=== PATIENT | male | born 1995 | race Caucasian/White ===

== ENCOUNTER 2023-11-12 04:51 | Observation (INO) ==
--- NOTE | 2023-11-12 05:16 | Emergency Department Note ---
History of Present Illness General Chief complaint: Shortness of Breath/Dyspnea Stated complaint: CHEST AND SINUS CONGESTION Time Seen by Provider: 11/12/23 05:05 History of Present Illness This 28-year-old male presents to the ER complaining of cough, congestion, sinus pain and congestion for the past week who last night had some chest pain and shortness of breath that is now resolved. Patient does suffer from anxiety. Patient states earlier in the week he had a day of cold symptoms but nothing since. Patient denies current abdominal pain, exertional chest pain, productive cough, sore throat, headache, neck stiffness. He speaking in full sentences. He states he is healthy with no active medical problems. No family history of heart disease. Home Medications Medication Instructions Recorded Confirmed Type No Known Home Medications 11/12/23 11/12/23 History Allergies Allergy/AdvReac Type Severity Reaction Status Date / Time No Known Allergies Allergy Unverified 11/12/23 06:10 Past Med/Surg History Social History Smoking Status: Never smoker Second Hand Exposure: No; Do You Dip or Chew Tobacco: No; Tobacco Cessation Education Requested by Patient: No Hx Alcohol Use: Yes Alcohol type: beer Hx Substance Use: No Preferred Language: Tamazight Communication Ability: Effective File System Installer Required: No Beliefs That Will Affect Care: None Current Living Situation: Parent Current Living Situation Comment: at home with parents Other Information That Helps Us Care for You: No Feels Safe at Home: Yes Safety Concerns: Feels Safe At This Time Assistive Devices: Glasses Review of Systems A total of 10 systems reviewed and were otherwise negative Physical Exam Vital Signs Vital Signs - 24 hr 11/12/23 05:01 11/12/23 05:23 11/12/23 05:47 Temperature 36.7 C Temperature Source Oral Pulse Rate 77 74 Pulse Rate [Apical] Pulse Rhythm [Apical] Respiratory Rate Respiratory Effort / Characteristics Non-Labored Spontaneous Respiratory Depth Normal Respiratory Pattern Regular Blood Pressure 125/77 Blood Pressure [Left Arm] Blood Pressure Mean 93 Blood Pressure Mean [Left Arm] Blood Pressure Position [Left Arm] Pulse Oximetry 97 Oxygen Delivery Method Room Air Oxygen Flow Rate Sepsis Recent Fever Within 48 Hours No Sepsis New/Unexplained Change in Mental Status No Sepsis Action Taken by Nursing No Action Required 11/12/23 05:47 11/12/23 05:49 11/12/23 06:05 Temperature Temperature Source Pulse Rate Pulse Rate [Apical] 79 Pulse Rhythm [Apical] Regular Respiratory Rate 18 Respiratory Effort / Characteristics Non-Labored Spontaneous Respiratory Depth Normal Respiratory Pattern Regular Blood Pressure Blood Pressure [Left Arm] 121/64 Blood Pressure Mean Blood Pressure Mean [Left Arm] 83 Blood Pressure Position [Left Arm] Semi-fowlers Pulse Oximetry 100 100 98 Oxygen Delivery Method Room Air Room Air Room Air Oxygen Flow Rate 0 Sepsis Recent Fever Within 48 Hours Sepsis New/Unexplained Change in Mental Status Sepsis Action Taken by Nursing VITALS: Vitals are noted on the nurse's note and reviewed by myself. Vital signs stable. GENERAL: Pleasant male speaking in full sentences, in no acute distress, nondiaphoretic, well-developed well-nourished. SKIN: The skin was without rashes, erythema, edema, or bruising. There is no tenting of the skin. Capillary reflex less than 2 seconds. HEAD: Normocephalic atraumatic. EARS: External auditory canals clear EYES: Pupils equal round and reactive to light and accommodation. Conjunctivae without injection, sclerae without icterus. Extraocular movements intact. NOSE: Patent, no discharge. MOUTH: Mucous membranes moist. Pharynx without erythema or exudate. Uvula midline. Airway patent. Tongue does not deviate. NECK: Supple without nuchal rigidity. No lymphadenopathy. No thyromegaly. Cervical spine is nontender. No JVD. HEART: Regular rate and rhythm LUNGS: Mild diffuse and expiratory wheezes, No retractions or accessory muscle use. ABDOMEN: Positive bowel sounds x 4. Normal tympanic percussion. Soft, nontender, without masses or organomegaly. Claudio sign negative. No guarding or rebound tenderness. No CVA tenderness MUSCULOSKELETAL: No muscle atrophy, erythema, or edema noted. NEURO: Patient was alert and oriented to person place and time. Normal sensation to light and sharp touch. No focal neurological deficits. Course Administered Medications Metoprolol Tartrate (Metoprolol Tartrate 25 Mg Tab) 12.5 mg PO BID AMY Stop: 12/12/23 11:14 Last Admin: 11/12/23 11:38 Dose: 12.5 mg Documented By: TNK Discontinued Medications Albuterol (Albut/Ipratrop 3mg/0.5mg Neb 3 Ml Vial) 3 ml NEB NOW STA; Protocol Stop: 11/12/23 05:13 Last Admin: 11/12/23 05:32 Dose: 3 ml Documented By: SIVAKUMAR Albuterol (Albuterol Hfa 8 Gm Inhaler) 2 puffs INH NOW ONE Stop: 11/12/23 05:13 Last Admin: 11/12/23 06:07 Dose: Not Given Documented By: SIVAKUMAR Amoxicillin/Clavulanate Potassium (Amoxicillin/Clavulanate 875mg Home Pack) 1 each PO ONE ONE Stop: 11/12/23 05:13 Last Admin: 11/12/23 06:07 Dose: Not Given Documented By: GabrielT Dexamethasone Sodium Phosphate (DexamethasonePf 10 Mg/Ml Vial) 10 mg IV NOW ONE Stop: 11/12/23 05:17 Last Admin: 11/12/23 05:32 Dose: 10 mg Documented By: SIVAKUMAR Fentanyl Citrate (Fentanyl Citrate Pf 100 Mcg/2 Ml Vial) Confirm Administered Dose 100 mcg .ROUTE .STK-MED ONE Stop: 11/12/23 14:13 Last Increment: 11/12/23 14:49 Dose: 25 mcg Documented By: CAROL Gabapentin (Gabapentin 600 Mg Tab) 1,200 mg PO NOW ONE Stop: 11/12/23 08:48 Last Admin: 11/12/23 10:52 Dose: 1,200 mg Documented By: TNK Gabapentin (Gabapentin 600 Mg Tab) 600 mg PO Q6H AMY Stop: 11/12/23 20:01 Last Admin: 11/12/23 19:45 Dose: 600 mg Documented By: Admin: 11/12/23 13:51 Dose: Not Given Documented By: OMARI Heparin Sodium (Porcine) (Heparin (Porcine) 1000 Unit/Ml 10 Ml (Cafeteria Operator Use Only)) Confirm Administered Dose 10,000 units .ROUTE .STK-MED ONE Stop: 11/12/23 14:13 Last Admin: 11/12/23 14:49 Dose: 5,000 units Documented By: CAROL Heparin Sodium/Sodium Chloride (Heparin In Nss Infusion 1000 Unit/500 Ml (2 U/Ml) Bag) Confirm Administered Dose 3,000 units IV .STK-MED ONE Stop: 11/12/23 14:14 Last Admin: 11/12/23 14:49 Dose: 3,000 units Documented By: CAROL Sodium Chloride (Nss) 1,000 mls @ 100 mls/hr IV .Q10H [facility] Stop: 11/12/23 19:13 Last Infusion: 11/12/23 11:19 Dose: 100 mls/hr Documented By: Admin: 11/12/23 09:17 Dose: 80 mls/hr Documented By: OMARI Multivitamins 10 ml/ Thiamine HCl 100 mg/ Folic Acid 1 mg/Sodium Chloride 1,011.2 mls @ 500 mls/hr IV .Q2H2M ONE Stop: 11/12/23 11:31 Last Infusion: 11/12/23 13:34 Dose: Infused Documented By: Admin: 11/12/23 10:49 Dose: 500 mls/hr Documented By: OMARI Ioversol (Optiray 320 125ml) 76 ml IV ONCE ONE Stop: 11/12/23 06:45 Last Admin: 11/12/23 06:44 Dose: 76 ml Documented By: EREN Ioversol (Optiray 350) Confirm Administered Dose 1 ml .ROUTE .STK-MED ONE Stop: 11/12/23 14:14 Last Admin: 11/12/23 14:52 Dose: 81 ml Documented By: CAROL Lorazepam (Lorazepam 1 Mg/1 Ml Syr Ed Inj Use) 1 mg IM ONE STA Stop: 11/12/23 06:11 Last Admin: 11/12/23 06:15 Dose: Not Given Documented By: GabrielT Lorazepam (Lorazepam 1 Mg/1 Ml Syr Ed Inj Use) 1 mg IV ONE STA Stop: 11/12/23 06:15 Last Admin: 11/12/23 06:29 Dose: 1 mg Documented By: SIVAKUMAR Midazolam HCl (Midazolam Hcl 1 Mg/Ml 2ml Vial) Confirm Administered Dose 2 mg .ROUTE .STK-MED ONE Stop: 11/12/23 14:13 Last Admin: 11/12/23 14:49 Dose: 2 mg Documented By: ASSESSOR Nicardipine HCl (Nicardipine Hcl Inj 2.5 Mg/Ml 10 Ml Amp) Confirm Administered Dose 25 mg .ROUTE .STK-MED ONE Stop: 11/12/23 14:14 Last Admin: 11/12/23 14:50 Dose: 25 mg Documented By: ASSESSOR Nitroglycerin/Dextrose (Nitroglycerin/D5w 100mcg/Ml 20ml Syr) Confirm Administered Dose 2,000 mcg .ROUTE .STK-MED ONE Stop: 11/12/23 14:14 Last Admin: 11/12/23 14:50 Dose: 2,000 mcg Documented By: ASSESSOR Medical Decision Making Medical Records Attestation: I reviewed the patient's medical records. Home Medications Current Medication List: was personally reviewed by me Laboratory Data Attestation: I reviewed the patient's lab results. 11/12/23 05:18 11/12/23 05:18 Lab Results 11/12/23 Range/Units 05:18 WBC 13.42 H (4.8-10.8) K/ul RBC 5.67 (4.70-6.10) M/uL Hgb 17.4 (14.0-18.0) g/dl Hct 48.4 (42.0-52.0) % MCV 85.4 (80.0-100.0) fL MCH 30.7 (25.0-34.0) pg MCHC 36.0 (32.0-36.0) g/dL RDW Std Deviation 38.1 (36.4-46.3) fL RDW Coeff of Min 12.3 (11.5-14.5) % Plt Count 193 (130-400) K/uL MPV 8.3 L (9.4-12.4) fL Immature Gran % (Auto) 0.4 % Neut % (Auto) 74.0 % Lymph % (Auto) 10.7 % [place] % (Auto) 9.9 % Eos % (Auto) 4.5 % Baso % (Auto) 0.5 % Neut # (Auto) 9.93 H (1.40-6.50) K/uL Lymph # (Auto) 1.43 (1.20-3.40) K/uL [place] # (Auto) 1.33 H (0.11-0.59) K/uL Eos # (Auto) 0.61 H (0.00-0.50) K/uL Baso # (Auto) 0.07 (0.00-0.20) K/uL Immature Gran # (Auto) 0.05 (0.01-0.20) K/uL Sodium 140 (136-145) mmol/L Potassium 3.8 (3.5-5.1) mmol/L Chloride 103 (98-107) mmol/L Carbon Dioxide 27 (21-32) mmol/L Anion Gap 10 (3-11) BUN 12 (6-23) mg/dl Creatinine 1.15 (0.6-1.4) mg/dl Est Cr Clr Drug Dosing 92.1 ml/min Est GFR ( Amer) 100.5 ml/min Est GFR (Non-Af Amer) 86.7 ml/min BUN/Creatinine Ratio 10.4 (10-20) Glucose 105 H (70-99(Fasting)) mg/dl Calcium 9.6 (8.6-10.3) mg/dl Total Bilirubin 2.6 H (0.2-1.0) mg/dl AST 29 (13-39) U/L ALT 28 (7-52) U/L Alkaline Phosphatase 62 (34-104) U/L Troponin I High Sens 2346.1 H* (0-20) pg/ml Total Protein 8.1 (6.0-8.3) gm/dl Albumin 4.9 (3.4-5.0) gm/dl Globulin 3.2 (2.5-4.0) gm/dl Albumin/Globulin Ratio 1.5 (0.9-2) Lipase 35 (11-82) U/L Imaging Data Attestation: I personally reviewed and interpreted this imaging study as follows: MDM Narrative Prior records/ancillary studies reviewed. Triage Nursing notes reviewed. Additional history obtained from family. The patient's history was concerning for cold symptoms and chest pain. Differential diagnosis: Etiologies such as cardiac ischemia, aortic dissection, pulmonary embolism, pneumonia, pneumothorax, musculoskeletal, infections, pericarditis, myocarditis, esophageal rupture, gastrointestinal, as well as others were entertained. Physical examination: As above. ER treatment provided: An order was placed for continuous cardiac monitoring. The monitor shows a rate of 60-100 with a sinus rhythm per my interpretation. Nebulizer, Ativan On reassessment the patient felt better. Diagnostic interpretation by me: #1 the electrocardiogram was negative for pathologic change. Ordered for chest pain EKG: Normal sinus, normal intervals, no acute ST-T wave changes. Impression normal sinus rhythm independently interpreted by myself I think arrhythmia is unlikely. EKG shows normal sinus rhythm with no interval abnormalities such as QT prolongation or WPW. There are no findings to suggest Brugada syndrome. Cardiac monitoring in the emergency department reveals no tachycardic or bradycardic dysrhythmia. Hypertrophic cardiomyopathy was considered but there are no clear historical elements pointing toward this. EKG is not suggestive. The QRS voltage is not extremely large and there are no suggestive Q waves. #2 EKG ordered for elevated troponin EKG: Normal sinus, ST sloping in the inferior leads, rate of 71. Impression normal sinus rhythm with possible ST sloping inferior leads independently interpreted by myself with concerns for possible developing pericarditis The labs Independently Interpreted by myself revealed leukocytosis Elevated troponin repeat was ordered [employer] ordered Imaging studies: Chest x-ray with no acute consolidation, pneumothorax or free air per my independent interpretation CTA ordered HEART SCORE: Hx: high/mod/low suspicion: 0 ECG: ST depression/nonspecific changes/normal: 0 Age: Greater than 65/45-64/less than 45: 0 Risk factors: (Hypertension, hyperlipidemia, diabetes, coronary disease, tobacco use, cocaine use): 0 Troponin: Greater than 2 times normal limits/1-2 times normal limits/normal: 1 Total: 1 Consultation was placed with medicine: Medicine is consulted and case discussed. Patient be admitted to the medical service for further evaluation and workup. Exam and history seem consistent with chest pain with elevated troponin concerning for pericarditis versus myocarditis. Patient was sick last week. No pneumonia on x-ray. Initial EKG was nonischemic. Second [address] sloping in the inferior leads concerning for possible Spodick sign. Medicine was consulted and the case was discussed. Patient will be admitted to the medical service for further evaluation and workup. Patient is agreeable.By the evaluation outlined above emergent etiologies such as aortic dissection, pneumonia, pneumothorax, gastrointestinal, as well as others were deemed relatively unlikely. The pt informed about the findings as listed above. All questions were answered and pleased with the treatment. The chart was completed utilizing [employer] Speech voice recognition software. Grammatical errors, random word insertions, pronoun errors, and incomplete sentences are an occassional consequence of this system due to software limitations, ambient noise, and hardware issues. Any formal questions or concerns about the content, text, or information contained within the body of this dictation should be directly addressed to the physician accounts payable assistant for clarification. Impression & Plan Elevated troponin, Chest pain Discharge Plan Visit Data Chief Complaint: Shortness of Breath/Dyspnea Stated Complaint: CHEST AND SINUS CONGESTION ED Provider: Carrie Steven ED Midlevel Provider: Brandy Olivas Discharge Problem: Elevated troponin, Chest pain Patient Disposition: Admitted As Inpatient Condition: Good Discharge Instructions Interventions: ED Discharge Assessment Last Done: 11/12/23 08:46
[2023-11-12 05:32] LABS: Basophils # (auto) 0.07 K/uL (0.00-0.20); Basophils % (auto) 0.5 %; Eosinophils # (auto) 0.61 K/uL (0.00-0.50); Eosinophils % (auto) 4.5 %; Hematocrit (blood only) 48.4 % (42.0-52.0); Hemoglobin 17.4 g/dl (14.0-18.0); Immature Granulocytes # (auto) 0.05 K/uL (0.01-0.20); Immature Granulocytes % (auto) 0.4 %; Lymphocytes # (auto) 1.43 K/uL (1.20-3.40); Lymphocytes % (auto) 10.7 %; Mean Corpuscular Hemoglobin 30.7 pg (25.0-34.0); Mean Corpuscular Volume 85.4 fL (80.0-100.0); Mean Platelet Volume 8.3 fL (9.4-12.4); Monocytes # (auto) 1.33 K/uL (0.11-0.59); Monocytes % (auto) 9.9 %; Neutrophils # (auto) 9.93 K/uL (1.40-6.50); Platelet Count 193 K/uL (130-400); RDW Coefficient of Variation 12.3 % (11.5-14.5); RDW Standard Deviation 38.1 fL (36.4-46.3); Red Blood Count 5.67 M/uL (4.70-6.10); White Blood Count 13.42 K/ul (4.8-10.8)
[2023-11-12] MEDS: dexAMETHasone**PF** 10 MG/ML VIAL IV ONE (05:32)
[2023-11-12] MEDS: ALBUT/IPRATROP 3MG/0.5MG NEB 3 ML VIAL NEB STA (05:32)
[2023-11-12 05:48] LABS: Albumin Globulin Ratio 1.5 (0.9-2); Albumin Level 4.9 gm/dl (3.4-5.0); BUN Creatinine Ratio 10.4 (10-20); Bilirubin,Total 2.6 mg/dl (0.2-1.0); Calcium 9.6 mg/dl (8.6-10.3); Creatinine Clr Calc Pharmacy 92.1 ml/min; Est GFR (African American) 100.5 ml/min; Est GFR (Non-African American) 86.7 ml/min; Globulin 3.2 gm/dl (2.5-4.0); Potassium 3.8 mmol/L (3.5-5.1); Total Protein 8.1 gm/dl (6.0-8.3)
[2023-11-12 05:57] LABS: Troponin I High Sensitivity 2346.1 pg/ml (0-20)
[2023-11-12] MEDS: ALBUTEROL HFA 8 GM INHALER INH ONE (06:07)
[2023-11-12] MEDS: AMOXICILLIN/CLAVULANATE 875MG HOME PACK PO ONE (06:07)
[2023-11-12] MEDS: LORazepam 1 MG/1 ML SYR ED Inj Use IM STA (06:15)
[2023-11-12] MEDS: LORazepam 1 MG/1 ML SYR ED Inj Use IV STA (06:29)
[2023-11-12] MEDS: OPTIRAY 320 125ml IV ONE (06:44)
--- NOTE | 2023-11-12 07:17 | XRay Report ---
XR chest 1V portable HISTORY: Shortness of breath. Chest pain, nonspecific COMPARISON: None. FINDINGS: The lungs are clear. Cardiac silhouette is normal in size. No pleural effusions. No pneumot horax. IMPRESSION: No acute process. ACT 112: Negative or not required by law. Electronically signed by: Randy Major M.D. 11/12/2023 7:16 AM
--- NOTE | 2023-11-12 07:17 | CT Scan Report ---
CHEST CTA for PULMONARY ARTERIES CT DOSE: 395.93 mGy.cm HISTORY: Atypical chest pain. TECHNIQUE: Multiaxial CT images of the chest were performed following the intravenous administration of contrast to evaluate the pulmonary arteries. 3D/Maximal intensity projection images were also obta ined. Sagittal and coronal reformations were also reviewed. A dose lowering technique was utilized a dhering to the principles of ALARA. COMPARISON STUDY: None. FINDINGS: There is a normal caliber thoracic aorta with no evidence for dissection. There is no evide nce for pulmonary embolus. No pleural effusions. No pneumothorax. The liver and spleen are unremarkab le. No mediastinal or hilar lymphadenopathy. The central airways are patent. The lungs are clear. IMPRESSION: No evidence for a pulmonary embolus. ACT 112: Negative or not required by law. Electronically signed by: Randy Major M.D. 11/12/2023 7:15 AM
--- NOTE | 2023-11-12 07:36 | History & Physical Report ---
Date of Service November 12, 2023 Assessment & Plan (1) Elevated troponin: Plan: 28-year-old male with no significant past medical history comes in because of chest pain and shortness of breath.Patient states since last 1 week he has some congestion and last Wednesday had bodyaches and fever but that got resolved. He is trying to cough but did not not getting any phlegm out. Yesterday was feeling better. Was ambulating and climbing steps okay. Around 3:30 AM he woke up with shortness of breath and chest pain 2-3/10 in severity and he has anxiety and states he worked it up and felt numbness in the left arm and decided to come to the ER. His drive to the ER is about 45 minutes. About [place] to the ER his chest pain got resolved. Left arm numbness resolved. In the ER after steroids and nebs treatments shortness of breath resolved. Currently resting c omfortably and hemodynamic stable. Currently febrile. Earlier was feeling lightheaded. Denies any headache. No blurred vision. Currently no runny nose or sore throat. Appetite is okay. Eating and drinking okay. No nausea. No abdominal pain. Normal bowel and bladder movements. Denies any blood in stools or black stools. Denies hematuria. Denies rash. Currently hemodynamics are okay.Patient states he drinks 6 beers daily. Last few days not drinking much because of the illness.Patient currently going for CAT scan of the chest. Chest pain and shortness of breath Elevated troponin Chest pain resolved before coming to the ER Shortness of breath improved with neb treatment and steroid Having ongoing illness for about a week with congestion and episode of fever EKG no acute findings Troponin came back as 2346 CTA chest unremarkable Currently asymptomatic Will follow serial cardiac enzymes, echo Will follow respiratory bio fire and urine drug screen Keep him n.p.o. Nebs as needed Telemetry Cardiology consult for further recommendations Alcoholism States drinks 6 beers daily Last few days did not drink much Will do banana bag IV thiamine and IV folic acid and MVI Gabapentin alcohol withdrawal protocol and IV Ativan as needed Total bilirubin 2.6 AST/ALT and alk phos is okay Follow repeat LFTs Close monitor DVT prophylaxis SCDs for now Disposition Telemetry Full code History of Present Illness Chief Complaint: Chest pain and shortness of breath Primary Care Provider: NO PCP 28-year-old male with no significant past medical history comes in because of chest pain and shortness of breath.Patient states since last 1 week he has some congestion and last Wednesday had bodyaches and fever but that got resolved. He is trying to cough but did not not getting any phlegm out. Yesterday was feeling better. Was ambulating and climbing steps okay. Around 3:30 AM he woke up with shortness of breath and chest pain 2-3/10 in severity and he has anxiety and states he worked it up and felt numbness in the left arm and decided to come to the ER. His drive to the ER is about 45 minutes. About [place] to the ER his chest pain got resolved. Left arm numbness resolved. In the ER after steroids and nebs treatments shortness of breath resolved. Currently resting comfortably and hemodynamic stable. Currently febrile. Earlier was feeling lightheaded. Denies any headache. No blurred vision. Currently no runny nose or sore throat. Appetite is okay. Eating and drinking okay. No nausea. No abdominal pain. Normal bowel and bladder movements. Denies any blood in stools or black stools. Denies hematuria. Denies rash. Currently hemodynamics are okay.Patient states he drinks 6 beers daily. Last few days not drinking much because of the illness.Patient currently going for CAT scan of the chest. Past medical history. As mentioned above Past surgical history. Dental surgery. Social history. Denies smoking. Drinks 6 beers daily. No drug use. Family history. Denies any significant family history. Allergies Allergy/AdvReac Type Severity Reaction Status Date / Time No Known Allergies Allergy Unverified 11/12/23 06:10 Past Med/Surg History Social History Smoking Status: Former smoker Feels Safe at Home: Yes Review of Systems Review of Systems: All systems reviewed & are unremarkable except as noted in HPI & below Physical Exam Physical Exam: General- Not in distress Head- atraumatic Eyes- PERRL. ENT- oropharynx clear Neck- supple, no JVD. Lungs- clear to auscultation no wheezing or crackles. Heart- regular rhythm; no murmur, no gallop. Abdomen- normal bowel sounds, soft, nontender, no distension. Extremities- no pretibial edema, no erythema seen. Neuro- alert, oriented PERRL, no facial palsy; no dysarthria; moves extremities. Results & Data Results & Data Vital Signs (Past 12 Hours) Vital Signs Temp Pulse Pulse Resp BP BP Pulse Ox 11/12/23 07:00 79 18 108/65 100 11/12/23 06:05 79 18 121/64 98 11/12/23 05:49 100 11/12/23 05:47 100 11/12/23 05:23 74 11/12/23 05:01 36.7 C 77 125/77 97 O2 Del Method O2 Flow Rate 11/12/23 07:00 Room Air 11/12/23 06:05 Room Air 11/12/23 05:49 Room Air 11/12/23 05:47 Room Air 0 11/12/23 05:23 11/12/23 05:01 Room Air Diagnostic Findings Laboratory Results WBC 13.42 K/ul (4.8-10.8) H 11/12/23 05:18 RBC 5.67 M/uL (4.70-6.10) 11/12/23 05:18 Hgb 17.4 g/dl (14.0-18.0) 11/12/23 05:18 Hct 48.4 % (42.0-52.0) 11/12/23 05:18 MCV 85.4 fL (80.0-100.0) 11/12/23 05:18 MCH 30.7 pg (25.0-34.0) 11/12/23 05:18 MCHC 36.0 g/dL (32.0-36.0) 11/12/23 05:18 RDW Std Deviation 38.1 fL (36.4-46.3) 11/12/23 05:18 RDW Coeff of Min 12.3 % (11.5-14.5) 11/12/23 05:18 Plt Count 193 K/uL (130-400) 11/12/23 05:18 MPV 8.3 fL (9.4-12.4) L 11/12/23 05:18 Immature Gran % (Auto) 0.4 % 11/12/23 05:18 Neut % (Auto) 74.0 % 11/12/23 05:18 Lymph % (Auto) 10.7 % 11/12/23 05:18 [place] % (Auto) 9.9 % 11/12/23 05:18 Eos % (Auto) 4.5 % 11/12/23 05:18 Baso % (Auto) 0.5 % 11/12/23 05:18 Neut # (Auto) 9.93 K/uL (1.40-6.50) H 11/12/23 05:18 Lymph # (Auto) 1.43 K/uL (1.20-3.40) 11/12/23 05:18 [place] # (Auto) 1.33 K/uL (0.11-0.59) H 11/12/23 05:18 Eos # (Auto) 0.61 K/uL (0.00-0.50) H 11/12/23 05:18 Baso # (Auto) 0.07 K/uL (0.00-0.20) 11/12/23 05:18 Immature Gran # (Auto) 0.05 K/uL (0.01-0.20) 11/12/23 05:18 Sodium 140 mmol/L (136-145) 11/12/23 05:18 Potassium 3.8 mmol/L (3.5-5.1) 11/12/23 05:18 Chloride 103 mmol/L (98-107) 11/12/23 05:18 Carbon Dioxide 27 mmol/L (21-32) 11/12/23 05:18 Anion Gap 10 (3-11) 11/12/23 05:18 BUN 12 mg/dl (6-23) 11/12/23 05:18 Creatinine 1.15 mg/dl (0.6-1.4) 11/12/23 05:18 Est Cr Clr Drug Dosing 92.1 ml/min 11/12/23 05:18 Est GFR ( Amer) 100.5 ml/min 11/12/23 05:18 Est GFR (Non-Af Amer) 86.7 ml/min 11/12/23 05:18 BUN/Creatinine Ratio 10.4 (10-20) 11/12/23 05:18 Glucose 105 mg/dl (70-99(Fasting)) H 11/12/23 05:18 Calcium 9.6 mg/dl (8.6-10.3) 11/12/23 05:18 Total Bilirubin 2.6 mg/dl (0.2-1.0) H 11/12/23 05:18 AST 29 U/L (13-39) 11/12/23 05:18 ALT 28 U/L (7-52) 11/12/23 05:18 Alkaline Phosphatase 62 U/L (34-104) 11/12/23 05:18 Troponin I High Sens 2346.1 pg/ml (0-20) H* 11/12/23 05:18 Total Protein 8.1 gm/dl (6.0-8.3) 11/12/23 05:18 Albumin 4.9 gm/dl (3.4-5.0) 11/12/23 05:18 Globulin 3.2 gm/dl (2.5-4.0) 11/12/23 05:18 Albumin/Globulin Ratio 1.5 (0.9-2) 11/12/23 05:18 Lipase 35 U/L (11-82) 11/12/23 05:18 Impressions Chest X-Ray 11/12/23 05:05 XR chest 1V portable HISTORY: Shortness of breath. Chest pain, nonspecific COMPARISON: None. FINDINGS: The lungs are clear. Cardiac silhouette is normal in size. No pleural effusions. No pneumothorax. IMPRESSION: No acute process. ACT 112: Negative or not required by law. Electronically signed by: Randy Major M.D. 11/12/2023 7:16 AM Chest CTA 11/12/23 05:58 CHEST CTA for PULMONARY ARTERIES CT DOSE: 395.93 mGy.cm HISTORY: Atypical chest pain. TECHNIQUE: Multiaxial CT images of the chest were performed following the intravenous administration of contrast to evaluate the pulmonary arteries. 3D/Maximal intensity projection images were also obtained. Sagittal and coronal reformations were also reviewed. A dose lowering technique was utilized adhering to the principles of ALARA. COMPARISON STUDY: None. FINDINGS: There is a normal caliber thoracic aorta with no evidence for dissection. There is no evidence for pulmonary embolus. No pleural effusions. No pneumothorax. The liver and spleen are unremarkable. No mediastinal or hilar lymphadenopathy. The central airways are patent. The lungs are clear. IMPRESSION: No evidence for a pulmonary embolus. ACT 112: Negative or not required by law. Electronically signed by: Randy Major M.D. 11/12/2023 7:15 AM ECG Additional Comments: ECG. Normal sinus rhythm with sinus arrhythmia at rate of 71. Nonspecific T wave abnormalities. Code Status & VTE Plan VTE Prophylaxis Plan VTE Prophylaxis will be ordered: Yes
[2023-11-12 07:51] LABS: Adenovirus PCR Not Detected (NotDetected); Bordetella parapertussis PCR Not Detected (NotDetected); Bordetella pertussis PCR Not Detected (NotDetected); Chlamydia pneumoniae PCR Not Detected (NotDetected); Coronavirus 229E PCR Not Detected (NotDetected); Coronavirus CoV-2 (COVID19)PCR Not Detected (NotDetected); Coronavirus HKU1 PCR Not Detected (NotDetected); Coronavirus NL63 PCR Not Detected (NotDetected); Coronavirus OC43PCR Not Detected (NotDetected); Human Metapneumovirus PCR Not Detected (NotDetected); Influenza A PCR Not Detected (NotDetected); Influenza B PCR Not Detected (NotDetected); Mycoplasma pneumoniae PCR Not Detected (NotDetected); Parainfluenza Virus 1 PCR Not Detected (NotDetected); Parainfluenza Virus 2 PCR Not Detected (NotDetected); Parainfluenza Virus 3 PCR Not Detected (NotDetected); Parainfluenza Virus 4 PCR Not Detected (NotDetected); Respiratory Syncytial VirusPCR Not Detected (NotDetected); Rhinovirus/Enterovirus PCR Not Detected (NotDetected)
[2023-11-12] MEDS ORDERED: LORazepam 3 MG in SYRINGE 1.5 ML IV PRN (08:47)
[2023-11-12] MEDS ORDERED: NITROGLYCERIN SL 0.4 MG/TAB TAB SL PRN (08:47)
[2023-11-12] MEDS ORDERED: GABAPENTIN 1200MG ALCOHOL WITHDRAWAL LOAD PO STA (08:47)
[2023-11-12] MEDS ORDERED: ALBUT/IPRATROP 3MG/0.5MG NEB 3 ML VIAL NEB PRN (08:47)
[2023-11-12] MEDS ORDERED: LORazepam 1 MG in SYRINGE 0.5 ML IV PRN (08:47)
[2023-11-12] MEDS ORDERED: LORazepam 2 MG in SYRINGE 1 ML IV PRN (08:47)
[2023-11-12] MEDS ORDERED: Ativan IV Alcohol Withdrawal--Active Protocol IV PRN (08:47)
[2023-11-12] MEDS ORDERED: ACETAMINOPHEN 325 MG TAB PO PRN (08:47)
[2023-11-12] MEDS: SODIUM CHLORIDE 0.9% 1,000 ML IV SCH (09:17)
[2023-11-12 10:25] LABS: Amphetamines+Metham, Urine Neg (Neg); Barbiturates, Urine Neg (Neg); Benzodiazepine, Urine Neg (Neg); Cocaine, Urine Neg (Neg); MDMA (Ecstacy), Urine Neg (Neg); Marijuana, Urine Neg (Neg); Methadone, Urine Neg (Neg); Opiate, Urine Neg (Neg); Phencyclidine, Urine Neg (Neg)
[2023-11-12] MEDS: MULTI-VITAMIN INFUSION 10 ML, THIAMINE HCL 100 MG, FOLIC ACID 1 MG in SODIUM CHLORIDE 0... IV ONE (10:49)
[2023-11-12] MEDS: GABAPENTIN 600 MG TAB PO ONE (10:52)
--- NOTE | 2023-11-12 11:04 | Cardiology Consultation ---
Date of Consultation November 12, 2023 Assessment & Plan (1) Chest pain: (2) Elevated troponin: Plan 28-year-old male presents with chest pain and shortness of breath preceded by 5- day history of possible viral syndrome cough hoarseness, transient chills. Echocardiogram demonstrates subtle hypokinesis of the posterior wall with otherwise normal LV function. Transient ST segment changes on EKG, minimal. Troponin however significant for elevation suggestive of myocarditis. Plan: Will likely require coronary angiography today. Begin beta-zoila with metoprolol tartrate 12.5 mg twice per day Expand inflammatory markers Check blood cultures given recent rigors Iron studies with elevated hemoglobin History of Present Illness Reason for Consultation: Chest pain elevated troponin Attending Physician: Indira Ku MD History of Present Illness Patient is a 28-year-old male without prior cardiac or medical illness. Patient and mother note chronic anxiety concerns and routine alcohol use. Patient presents this admission noting having developed acute febrile illness approximately 5 days prior. Beginning with sore throat head congestion and low- grade cough. 3 days prior night of chills and sweats. Initially improved but last night awakened with chest pain and chest discomfort increasing shortness of breath. Sought ER evaluation. Initial EKG and imaging studies unrevealing troponin however elevated, EKGs with transient T wave inversion V3 and lead III. Currently anxious but no acute distress still with low-grade cough minimally productive. No bleeding issues melena medic easier Generally very active on job and about home Non-smoker but drinks 6 pack or more per day of beer Allergies Allergy/AdvReac Type Severity Reaction Status Date / Time No Known Allergies Allergy Unverified 11/12/23 06:10 Home Medications Medication Instructions Recorded Confirmed Type No Known Home Medications 11/12/23 11/12/23 History Patient History Social History Smoking Status: Never smoker Second Hand Exposure: No; Do You Dip or Chew Tobacco: No; Tobacco Cessation Education Requested by Patient: No Hx Alcohol Use: Yes Alcohol type: beer Hx Substance Use: No Preferred Language: Jordanian Communication Ability: Effective Zyglo Technician Required: No Beliefs That Will Affect Care: None Current Living Situation Comment: at home with parents Other Information That Helps Us Care for You: No Feels Safe at Home: Yes Safety Concerns: Feels Safe At This Time Assistive Devices: Glasses Review of Systems Review of Systems: All systems reviewed & are unremarkable except as noted in HPI & below Physical Exam Constitutional: WD/WN, vitals as above + thin Eyes: PERRL, conjunctivae normal, anicteric sclerae ENMT: external ear and nose normal, oropharynx normal Neck: trachea midline, no thyromegaly Respiratory: normal respiratory effort, lungs clear to auscultation Cardiovascular: Rate/Rhythm: regular rate and regular rhythm Heart Sounds: normal S1 and normal S2; no gallop, no murmur and no cardiac rub Palpation: normal PMI Vessels: normal carotid upstroke and radial pulses present; no JVD and no carotid bruit Extremities: no edema Gastrointestinal (Abdomen): normal bowel sounds, soft, nontender, no hepatosplenomegaly Musculoskeletal: no cyanosis or clubbing, extremities motor strength 5/5 Skin: no rashes, warm and dry Neurologic: PERRL, EOMI, accommodation nl, no face palsy, no dysarthria Psychiatric: A+Ox3, euthymic affect Results & Data Vital Signs (Past 12 Hours) Vital Signs Temp Pulse Pulse Resp BP BP Pulse Ox 11/12/23 10:53 75 11/12/23 09:18 73 18 120/79 99 11/12/23 07:00 79 18 108/65 100 11/12/23 06:05 79 18 121/64 98 11/12/23 05:49 100 11/12/23 05:47 100 11/12/23 05:23 74 11/12/23 05:01 36.7 C 77 125/77 97 O2 Del Method O2 Flow Rate 11/12/23 10:53 11/12/23 09:18 Room Air 11/12/23 07:00 Room Air 11/12/23 06:05 Room Air 11/12/23 05:49 Room Air 11/12/23 05:47 Room Air 0 11/12/23 05:23 11/12/23 05:01 Room Air Laboratory Results Laboratory Results - last 24 hr 11/12/23 11/12/23 11/12/23 05:18 07:09 09:33 WBC 13.42 H RBC 5.67 Hgb 17.4 Hct 48.4 MCV 85.4 MCH 30.7 MCHC 36.0 RDW Std Deviation 38.1 RDW Coeff of Min 12.3 Plt Count 193 MPV 8.3 L Immature Gran % (Auto) 0.4 Neut % (Auto) 74.0 Lymph % (Auto) 10.7 Lake % (Auto) 9.9 Eos % (Auto) 4.5 Baso % (Auto) 0.5 Neut # (Auto) 9.93 H Lymph # (Auto) 1.43 Lake # (Auto) 1.33 H Eos # (Auto) 0.61 H Baso # (Auto) 0.07 Immature Gran # (Auto) 0.05 Sodium 140 Potassium 3.8 Chloride 103 Carbon Dioxide 27 Anion Gap 10 BUN 12 Creatinine 1.15 Est Cr Clr Drug Dosing 92.1 Est GFR ( Amer) 100.5 Est GFR (Non-Af Amer) 86.7 BUN/Creatinine Ratio 10.4 Glucose 105 H Calcium 9.6 Total Bilirubin 2.6 H AST 29 ALT 28 Alkaline Phosphatase 62 Troponin I High Sens 2346.1 H* 2523.7 H* Total Protein 8.1 Albumin 4.9 Globulin 3.2 Albumin/Globulin Ratio 1.5 Lipase 35 Urine Opiates Screen Neg Ur Methadone, Qual Neg Urine Barbiturates Neg Ur Phencyclidine (PCP) Neg U Amphetamin/Meth Scrn Neg MDMA (Ecstasy) Screen Neg U Benzodiazepines Scrn Neg Ur Cocaine Metabolite Neg U Marijuana (THC) Screen Neg Adenovirus (PCR) B. pertussis DNA (PCR) B.parapertussis DNA PCR C. pneumoniae DNA (PCR) Coronavirus OC43 (PCR) Coronavirus HKU1 (PCR) Coronavirus 229E (PCR) SARS-CoV-2 (PCR) Coronavirus NL63 (PCR) Human Metapneumovir PCR Influenza Type A (PCR) Influenza Type B (PCR) M. pneumoniae (PCR) Parainfluenza 1 (PCR) Parainfluenza 2 (PCR) Parainfluenza 3 (PCR) Parainfluenza 4 (PCR) RSV (PCR) Entero/Rhino (PCR) 11/12/23 11/12/23 10:07 Unknown WBC RBC Hgb Hct MCV MCH MCHC RDW Std Deviation RDW Coeff of Min Plt Count MPV Immature Gran % (Auto) Neut % (Auto) Lymph % (Auto) Lake % (Auto) Eos % (Auto) Baso % (Auto) Neut # (Auto) Lymph # (Auto) Lake # (Auto) Eos # (Auto) Baso # (Auto) Immature Gran # (Auto) Sodium Potassium Chloride Carbon Dioxide Anion Gap BUN Creatinine Est Cr Clr Drug Dosing Est GFR ( Amer) Est GFR (Non-Af Amer) BUN/Creatinine Ratio Glucose Calcium Total Bilirubin AST ALT Alkaline Phosphatase Troponin I High Sens Pending Total Protein Albumin Globulin Albumin/Globulin Ratio Lipase Urine Opiates Screen Ur Methadone, Qual Urine Barbiturates Ur Phencyclidine (PCP) U Amphetamin/Meth Scrn MDMA (Ecstasy) Screen U Benzodiazepines Scrn Ur Cocaine Metabolite U Marijuana (THC) Screen Adenovirus (PCR) Not Detected B. pertussis DNA (PCR) Not Detected B.parapertussis DNA PCR Not Detected C. pneumoniae DNA (PCR) Not Detected Coronavirus OC43 (PCR) Not Detected Coronavirus HKU1 (PCR) Not Detected Coronavirus 229E (PCR) Not Detected SARS-CoV-2 (PCR) Not Detected Coronavirus NL63 (PCR) Not Detected Human Metapneumovir PCR Not Detected Influenza Type A (PCR) Not Detected Influenza Type B (PCR) Not Detected M. pneumoniae (PCR) Not Detected Parainfluenza 1 (PCR) Not Detected Parainfluenza 2 (PCR) Not Detected Parainfluenza 3 (PCR) Not Detected Parainfluenza 4 (PCR) Not Detected RSV (PCR) Not Detected Entero/Rhino (PCR) Not Detected
[2023-11-12] MEDS: METOPROLOL TARTRATE 25 MG TAB PO SCH (11:38)
[2023-11-12 12:33] LABS: C Reactive Protein 3.72 mg/dl (0-0.5)
[2023-11-12] MEDS: GABAPENTIN 600 MG TAB PO SCH (13:51)
--- NOTE | 2023-11-12 14:15 | Pre Anesthesia Assessment ---
Date of Service November 12, 2023 Pre Sedation Assessment Vital Signs Temp Pulse Pulse Resp BP BP BP 11/12/23 14:10 37.2 C 77 14 131/67 11/12/23 13:53 66 11/12/23 10:53 75 11/12/23 09:18 73 18 120/79 11/12/23 07:00 79 18 108/65 11/12/23 06:05 79 18 121/64 11/12/23 05:49 11/12/23 05:47 11/12/23 05:23 74 11/12/23 05:01 36.7 C 77 125/77 Pulse Ox O2 Del Method O2 Flow Rate 11/12/23 14:10 98 Room Air 11/12/23 13:53 11/12/23 10:53 11/12/23 09:18 99 Room Air 11/12/23 07:00 100 Room Air 11/12/23 06:05 98 Room Air 11/12/23 05:49 100 Room Air 11/12/23 05:47 100 Room Air 0 11/12/23 05:23 11/12/23 05:01 97 Room Air Cardiovascular RRR, no murmur, no edema + S1 normal and + S2 normal; no gallop and no murmur no JVD no edema Pre-Sedation Airway Assessment Smoking Status: Never smoker Hx Sleep Apnea: No Short, Thick Neck: No Thyromental Distance: > or= 3.5 Finger Breadths Oral Cavity: + WNL Mallampati Class: II ASA: ASA2 NPO Status Date of Last Intake of Fluids: 11/11/23 Time of Last Intake of Fluids: 20:00 Date of Last Intake of Solid Food: 11/11/23 Time of Last Intake of Solid Foods: 20:00 Procedure Planning Contraindications for Sedation: none Current Medications Reviewed: Yes Notes The planned sedation has been discussed with the patient. Informed Consent was obtained. I have identified the patient, determined the appropriateness of sedation and have assessed the patient immediately prior to the procedure. All medicine(s) and interventions are by my order.
[2023-11-12] MEDS: fentaNYL citrate PF 100 MCG/2 ML VIAL ONE (14:49)
[2023-11-12] MEDS: HEPARIN (PORCINE) 1000 UNIT/ML 10 ML (CATH LAB USE ONLY) ONE (14:49)
[2023-11-12] MEDS: MIDAZOLAM HCL 1 MG/ML 2ML VIAL ONE (14:49)
[2023-11-12] MEDS: NITROGLYCERIN/D5W 100MCG/ML 20ML SYR ONE (14:50)
[2023-11-12] MEDS: niCARdipine HCL INJ 2.5 MG/ML 10 ML AMP ONE (14:50)
[2023-11-12] MEDS: OPTIRAY 350 ONE (14:52)
[2023-11-12 14:58] LABS: Thyroid Stimulating Hormone 0.608 uIu/ml (0.300-4.500)
--- NOTE | 2023-11-12 15:06 | Cardiac Catheterization ---
Cardiac Cath Procedure Brief Procedure Date November 12, 2023 Pre-Procedure Diagnosis Pre-Procedure Diagnosis: Angina and Positive Stress Test AUC Score AUC Score: 7 Post-Procedure Diagnosis Post-Procedure Diagnosis: Normal Coronary Arteries and Normal LV Systolic Function Procedure(s) Performed Procedure(s) Performed: Coronary Angiography, Left Heart Cath and LV Angiography Dryland Farmer Reddy Liu MD Estimated Blood Loss Estimated Blood Loss: <15cc Medication(s) Medication(s): Fentanyl (12.5 mcg IV x 2), Heparin (5000 units IV), Lidocaine 1% (Local infiltration access site), Nicardipine (250 mcg intra-arterial after arterial sheath insertion) and Versed (1 mg IV x 2) Preliminary Findings Impression: Normal coronary arteries, normal LV systolic function Procedure: Left heart catheterization, coronary, LV angiography via right radial access without difficulty Catheters: 6 Azerbaijani long glide radial sheath, 5 [place]ani [place], 5 [place]ani straight pigtail Coronary angiography: Right dominant anatomy Left main: Long and free of disease Left anterior descending: Type III in distribution. Gives rise to a large high diagonal branch and a moderate-sized second diagonal branch in its midportion trivial third diagonal branch in its apical segment. There is no disease in the left anterior descending Left circumflex: Moderately large but nondominant. It gives rise to an obtuse marginal and a large posterolateral branch. There is no disease in the left circumflex Right coronary artery: Moderate caliber dominant vessel giving rise to a conus and sinoatrial branch at its origin modest posterior sending artery and 3 small posterior ventricular branches. 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
--- NOTE | 2023-11-12 15:08 | Cardiac Catheterization ---
Cardiac Cath Procedure Full Procedure Date November 12, 2023 Pre-Procedure Diagnosis Pre-Procedure Diagnosis: Angina and Positive Stress Test AUC Score AUC Score: 7 Post-Procedure Diagnosis Post-Procedure Diagnosis: Normal Coronary Arteries and Normal LV Systolic Function Procedure(s) Performed Procedure(s) Performed: Coronary Angiography, Left Heart Cath and LV Angiography Slag Motor Operator Reddy Liu MD Estimated Blood Loss Estimated Blood Loss: <15cc Medication(s) Medication(s): Fentanyl (12.5 mcg IV x 2), Heparin (5000 units IV), Lidocaine 1% (Local infiltration access site), Nicardipine (250 mcg intra-arterial after arterial sheath insertion) and Versed (1 mg IV x 2) Summary of Findings Impression: Normal coronary arteries, normal LV systolic function Procedure: Left heart catheterization, coronary, LV angiography via right radial access without difficulty Catheters: 6 Venezuelan long glide radial sheath, 5 Venezuelan [place], 5 Venezuelan straight pigtail Coronary angiography: Right dominant anatomy Left main: Long and free of disease Left anterior descending: Type III in distribution. Gives rise to a large high diagonal branch and a moderate-sized second diagonal branch in its midportion trivial third diagonal branch in its apical segment. There is no disease in the left anterior descending Left circumflex: Moderately large but nondominant. It gives rise to an obtuse marginal and a large posterolateral branch. There is no disease in the left circumflex Right coronary artery: Moderate caliber dominant vessel giving rise to a conus and sinoatrial branch at its origin modest posterior sending artery and 3 small posterior ventricular branches. 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 Any exceptions are noted below. ACC Data: Master Mechanic Cardiac Status Clinical evaluation leading to the procedure 28-year-old male presenting with acute viral syndrome significantly elevated troponin greater than 2500 intermittent chest pain and shortness of breath CAD Presenation: Sx unlikely to be ischemic Anginal Classification: CCS IV Heart Failure: No Cardiogenic Shock within 24 Hours: No Cardiac Arrest within 24 Hours: No Imaging Studies Past 6 Months: Yes Stress Studies Past 6 Months: No Standard Exercise Test: No Stress Echocardiogram: No Stress Testing w/SPECT MPI: No Cardiac CTA: No Coronary Anatomy Dominant: Right Left Main (% Stenosis): Normal LAD (% Stenosis): Normal D1 (% Stenosis): Normal D2 (% Stenosis): Normal D3 (% Stenosis): Normal Circumflex (% Stenosis): Normal OM1 (% Stenosis): Normal L PL1 (% Stenosis): Normal RCA (% Stenosis): Normal R PDA (% Stenosis): Normal R PL1 (% Stenosis): Normal R PL2 (% Stenosis): Normal Left Ventricular Angiography EF (%): 55 Aortography Aortic Regurgitation: None Diagnostic Physicians Name: Reddy Liu MD Closure Device Recommendations: Medical Therapy and/or Counseling
--- NOTE | 2023-11-12 15:28 | Post Anesthesia Assessment ---
Date of Service November 12, 2023 Post Sedation Assessment Vital Signs Temp Pulse Pulse Resp BP BP BP 11/12/23 15:00 37.2 C 76 15 113/68 11/12/23 14:14 36.7 C 72 14 131/67 11/12/23 14:10 37.2 C 77 14 131/67 11/12/23 13:53 66 11/12/23 10:53 75 11/12/23 09:18 73 18 120/79 11/12/23 07:00 79 18 108/65 11/12/23 06:05 79 18 121/64 11/12/23 05:49 11/12/23 05:47 11/12/23 05:23 74 11/12/23 05:01 36.7 C 77 125/77 Pulse Ox O2 Del Method O2 Flow Rate 11/12/23 15:00 99 Room Air 11/12/23 14:14 100 Room Air 11/12/23 14:10 98 Room Air 11/12/23 13:53 11/12/23 10:53 11/12/23 09:18 99 Room Air 11/12/23 07:00 100 Room Air 11/12/23 06:05 98 Room Air 11/12/23 05:49 100 Room Air 11/12/23 05:47 100 Room Air 0 11/12/23 05:23 11/12/23 05:01 97 Room Air Recovery Score Activity: Moves 4 extremities Respiration: Deep Breath/Cough Circulation: +/-20% PreAnes Value Consciousness: Fully Awake Oxygen Saturation: > 92% On Room Air Post Anesthesia Score: 10 Discharge Sedation Level of Care: Phase I Post Sedation Plan On clinical assessment, the patient appears to have tolerated the sedation without complications. Patient is recovering as anticipated. Patient will continue to be monitored by nursing and may be discharged when sedation discharge criteria are met per below protocol. Upon Completions of procedure up to 15 minutes continue every 5 minute vital signs and the P.A.R. score; then discharge to a Phase I or Fast Track to Phase II per the following guidelines: * Discharge Patient to appropriate Phase II area if PAR is 8 or greater or return to pre- procedure baseline. The post - procedure orders will be as directed. * If PAR score is less than 8 or not return to pre-procedure baseline then patient will follow Phase I monitoring till PAR is reached for Phase II. The Phase I may be done in procedure room or may call to secure a Phase I area. * If naloxone or flumazenil are used for reversal, hold in Phase I for continued monitoring from when last reversal dose was given for a minimum of 60 minutes or longer pending the nurse and/or physician discretion of patient condition before discharge to Phase II. Please call the Sedation Physician to re-evaluate and complete post-note for discharge to Phase II area. Do NOT discharge from procedure sedation or Phase 1 until post- sedation evaluation note is complete by procedure /sedation MD Sedation Discharge Instructions to be given to the patient at discharge to home.
--- NOTE | 2023-11-12 17:30 | Communication Note ---
Date of Service: November 12, 2023 Reported URI symptoms from wednesday. Sinus congestion, sore throat and cough Reported chills and fever the next day Maurice better over the past day. Then developed chest pain and shortness of breath this AM UTox negative Resp PCR negative CXR and CTA chest negative Trop was significantly elevated at 2346. No ischemic changes on EKG TTE normal Card cath today did not show any CAD Reports symptoms resolved Will follow up blood cultures Continue supportive care Counseled regarding alcohol use. Drinks about 6 beer per day Other plans in H/P
--- NOTE | 2023-11-12 20:37 | Electrocardiogram Report ---
Test Reason : Blood Pressure : / mmHG Vent. Rate : 071 BPM Atrial Rate : 071 BPM P-R Int : 162 ms QRS Dur : 092 ms QT Int : 408 ms P-R-T Axes : 061 084 016 degrees QTc Int : 443 ms Normal sinus rhythm with sinus arrhythmia Nonspecific T wave abnormality Abnormal ECG When compared with ECG of 12-NOV-2023 05:13, No significant change was found Confirmed by Rivas Mendes ([id number]) on 11/12/2023 8:37:28 PM Referred By: REFERRED SELF Confirmed By:Rivas Mendes
--- NOTE | 2023-11-12 20:37 | Electrocardiogram Report ---
Test Reason : Blood Pressure : / mmHG Vent. Rate : 079 BPM Atrial Rate : 079 BPM P-R Int : 162 ms QRS Dur : 090 ms QT Int : 400 ms P-R-T Axes : 069 080 035 degrees QTc Int : 458 ms Normal sinus rhythm Normal ECG No previous ECGs available Confirmed by Rivas Mendes ([id number]) on 11/12/2023 8:37:03 PM Referred By: REFERRED SELF Confirmed By:Rivas Mendes
[2023-11-13] MEDS: GABAPENTIN 600 MG TAB PO SCH (04:35)
[2023-11-13 04:57] LABS: Basophils # (auto) 0.05 K/uL (0.00-0.20); Basophils % (auto) 0.5 %; Eosinophils # (auto) 0.04 K/uL (0.00-0.50); Eosinophils % (auto) 0.4 %; Hematocrit (blood only) 45.5 % (42.0-52.0); Hemoglobin 15.8 g/dl (14.0-18.0); Immature Granulocytes # (auto) 0.04 K/uL (0.01-0.20); Immature Granulocytes % (auto) 0.4 %; Lymphocytes % (auto) 15.9 %; Mean Corpuscular Hemoglobin 29.8 pg (25.0-34.0); Mean Corpuscular Hgb Conc 34.7 g/dL (32.0-36.0); Mean Corpuscular Volume 85.7 fL (80.0-100.0); Mean Platelet Volume 8.4 fL (9.4-12.4); Monocytes # (auto) 0.91 K/uL (0.11-0.59); Monocytes % (auto) 8.5 %; Neutrophils # (auto) 7.98 K/uL (1.40-6.50); Neutrophils % (auto) 74.3 %; Platelet Count 195 K/uL (130-400); RDW Coefficient of Variation 12.4 % (11.5-14.5); RDW Standard Deviation 38.9 fL (36.4-46.3); Red Blood Count 5.31 M/uL (4.70-6.10); White Blood Count 10.72 K/ul (4.8-10.8)
[2023-11-13 05:04] LABS: Albumin Level 4.1 gm/dl (3.4-5.0); BUN Creatinine Ratio 13.6 (10-20); Bilirubin Direct 0.4 mg/dl (0-0.2); Bilirubin,Total 1.7 mg/dl (0.2-1.0); Calcium 9.1 mg/dl (8.6-10.3); Creatinine Clr Calc Pharmacy 102.9 ml/min; Est GFR (African American) 114.8 ml/min; Est GFR (Non-African American) 99.1 ml/min; Magnesium 2.1 mg/dl (1.7-2.4); Total Protein 6.9 gm/dl (6.0-8.3)
--- NOTE | 2023-11-13 07:06 | Electrocardiogram Report ---
Test Reason : Blood Pressure : / mmHG Vent. Rate : 047 BPM Atrial Rate : 047 BPM P-R Int : 154 ms QRS Dur : 090 ms QT Int : 468 ms P-R-T Axes : -47 093 056 degrees QTc Int : 414 ms Unusual P axis, possible ectopic atrial bradycardia Rightward axis Abnormal ECG When compared with ECG of 12-NOV-2023 06:01, Ectopic atrial rhythm has replaced Sinus rhythm Vent. rate has decreased BY 24 BPM T wave inversion no longer evident in Inferior leads T wave inversion no longer evident in Anterior leads Confirmed by Brando Santos ([id number]) on 11/13/2023 7:06:11 AM Referred By: REFERRED SELF Confirmed By:Harinder Santos
[2023-11-13] MEDS: CEROVITE ADV FORMULA TAB PO SCH (08:50)
[2023-11-13] MEDS: FOLIC ACID 1 MG in SYRINGE 9.8 ML IV SCH (08:50)
[2023-11-13] MEDS: THIAMINE HCL 100 MG in SYRINGE 9 ML IV SCH (08:51)
--- NOTE | 2023-11-13 09:48 | Cardiology Progress Note ---
Date of Service November 13, 2023 Assessment & Plan (1) Chest pain: (2) Elevated troponin: Plan 28-year-old male presents with chest pain and shortness of breath preceded by 5- day history of possible viral syndrome cough hoarseness, transient chills. Echocardiogram demonstrates subtle hypokinesis of the posterior wall with otherwise normal LV function. Transient ST segment changes on EKG, minimal. Troponin however significant for elevation suggestive of myocarditis. Plan: Will likely require coronary angiography today. Begin beta-zoila with metoprolol tartrate 12.5 mg twice per day Expand inflammatory markers Check blood cultures given recent rigors Iron studies with elevated hemoglobin 11/13/2023 Feeling improved. Tolerating low-dose beta-zoila. 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 Preserved LV function on echocardiogram, no coronary obstruction Would continue low-dose beta-zoila minimum 30 days No strenuous activity x 1 week Will arrange cardiac MRI and cardiology follow-up Needs alcohol cessation or significant moderation Admission and Anticipated Discharge Date Admission Date: November 12, 2023 Subjective Patient seen and personally examined, chart, medications, telemetry reviewed. Feels well this morning mildly productive cough but no fevers or chills. No shortness of breath or chest pain No arrhythmias on telemetry Ambulatory in room Review of Systems Review of Systems: All systems reviewed & are unremarkable except as noted in Subjective Physical Exam Constitutional: WD/WN, vitals as above + thin Eyes: PERRL, conjunctivae normal, anicteric sclerae ENMT: Mallampati Class: II Neck: trachea midline, no thyromegaly Respiratory: normal respiratory effort, lungs clear to auscultation Cardiovascular: RRR, no murmur, no edema Rate/Rhythm: regular rate and regular rhythm Heart Sounds: normal S1 and normal S2; no gallop, no murmur and no cardiac rub Palpation: normal PMI Vessels: normal carotid upstroke and radial pulses present; no JVD and no carotid bruit Extremities: no edema Gastrointestinal (Abdomen): normal bowel sounds, soft, nontender, no hepatosplenomegaly Musculoskeletal: no cyanosis or clubbing, extremities motor strength 5/5 Skin: no rashes, warm and dry Neurologic: PERRL, EOMI, accommodation nl, no face palsy, no dysarthria Psychiatric: A+Ox3, euthymic affect Results & Data Vital Signs (Past 12 Hours) Vital Signs Temp Pulse Pulse Resp BP Pulse Ox O2 Del Method 11/13/23 08:05 63 11/13/23 08:00 36.5 C 75 18 94/55 L 98 Room Air 11/13/23 04:08 36.6 C 75 18 106/70 97 Room Air 11/12/23 23:31 36.6 C 78 18 100/61 96 Room Air 11/12/23 23:00 65 Laboratory Results Laboratory Results - last 24 hr 11/12/23 11/12/23 11/12/23 09:33 10:07 11:33 WBC RBC Hgb Hct MCV MCH MCHC RDW Std Deviation RDW Coeff of Min Plt Count MPV Immature Gran % (Auto) Neut % (Auto) Lymph % (Auto) [place] % (Auto) Eos % (Auto) Baso % (Auto) Neut # (Auto) Lymph # (Auto) [place] # (Auto) Eos # (Auto) Baso # (Auto) Immature Gran # (Auto) ESR 14 Sodium Potassium Chloride Carbon Dioxide Anion Gap BUN Creatinine Est Cr Clr Drug Dosing Est GFR ( Amer) Est GFR (Non-Af Amer) BUN/Creatinine Ratio Glucose Calcium Magnesium Iron 21 L TIBC 322 Unsaturated IBC 301 Transferrin % Sat 7 L Total Bilirubin Direct Bilirubin AST ALT Alkaline Phosphatase Troponin I High Sens 2372.9 H* 2254.1 H* C-Reactive Protein 3.72 H Total Protein Albumin Vitamin B12 TSH 0.608 Urine Opiates Screen Neg Ur Methadone, Qual Neg Urine Barbiturates Neg Ur Phencyclidine (PCP) Neg U Amphetamin/Meth Scrn Neg MDMA (Ecstasy) Screen Neg U Benzodiazepines Scrn Neg Ur Cocaine Metabolite Neg U Marijuana (THC) Screen Neg 11/12/23 11/13/23 20:31 04:31 WBC 10.72 RBC 5.31 Hgb 15.8 Hct 45.5 MCV 85.7 MCH 29.8 MCHC 34.7 RDW Std Deviation 38.9 RDW Coeff of Min 12.4 Plt Count 195 MPV 8.4 L Immature Gran % (Auto) 0.4 Neut % (Auto) 74.3 Lymph % (Auto) 15.9 [place] % (Auto) 8.5 Eos % (Auto) 0.4 Baso % (Auto) 0.5 Neut # (Auto) 7.98 H Lymph # (Auto) 1.70 [place]yer # (Auto) 0.91 H Eos # (Auto) 0.04 Baso # (Auto) 0.05 Immature Gran # (Auto) 0.04 ESR Sodium 138 Potassium 4.0 Chloride 105 Carbon Dioxide 27 Anion Gap 6 BUN 14 Creatinine 1.03 Est Cr Clr Drug Dosing 102.9 Est GFR ( Amer) 114.8 Est GFR (Non-Af Amer) 99.1 BUN/Creatinine Ratio 13.6 Glucose 105 H Calcium 9.1 Magnesium 2.1 Iron TIBC Unsaturated IBC Transferrin % Sat Total Bilirubin 1.7 H Direct Bilirubin 0.4 H AST 24 ALT 20 Alkaline Phosphatase 54 Troponin I High Sens 1092.7 H* D C-Reactive Protein Total Protein 6.9 Albumin 4.1 Vitamin B12 746 TSH Urine Opiates Screen Ur Methadone, Qual Urine Barbiturates Ur Phencyclidine (PCP) U Amphetamin/Meth Scrn MDMA (Ecstasy) Screen U Benzodiazepines Scrn Ur Cocaine Metabolite U Marijuana (THC) Screen
--- NOTE | 2023-11-13 13:27 | Discharge Summary ---
Date of Service November 13, 2023 Admission HPI Per Admitting Provider 28-year-old male with no significant past medical history comes in because of chest pain and shortness of breath.Patient states since last 1 week he has some congestion and last Wednesday had bodyaches and fever but that got resolved. He is trying to cough but did not not getting any phlegm out. Yesterday was feeling better. Was ambulating and climbing steps okay. Around 3:30 AM he woke up with shortness of breath and chest pain 2-3/10 in severity and he has anxiety and states he worked it up and felt numbness in the left arm and decided to come to the ER. His drive to the ER is about 45 minutes. About [place] to the ER his chest pain got resolved. Left arm numbness resolved. In the ER after steroids and nebs treatments shortness of breath resolved. Currently resting comfortably and hemodynamic stable. Currently febrile. Earlier was feeling lightheaded. Denies any headache. No blurred vision. Currently no runny nose or sore throat. Appetite is okay. Eating and drinking okay. No nausea. No a bdominal pain. Normal bowel and bladder movements. Denies any blood in stools or black stools. Denies hematuria. Denies rash. Currently hemodynamics are okay.Patient states he drinks 6 beers daily. Last few days not drinking much because of the illness.Patient currently going for CAT scan of the chest. Past medical history. As mentioned above Past surgical history. Dental surgery. Social history. Denies smoking. Drinks 6 beers daily. No drug use. Family history. Denies any significant family history. Admission Exam Per Admitting Provider General- Not in distress Head- atraumatic Eyes- PERRL. ENT- oropharynx clear Neck- supple, no JVD. Lungs- clear to auscultation no wheezing or crackles. Heart- regular rhythm; no murmur, no gallop. Abdomen- normal bowel sounds, soft, nontender, no distension. Extremities- no pretibial edema, no erythema seen. Neuro- alert, oriented PERRL, no facial palsy; no dysarthria; moves extremities. Principal Diagnosis Chest pain Elevated troponin Possible acute viral myocarditis Discharge Exam Constitutional + well hydrated; no acute distress Eyes PERRL, conjunctivae normal, anicteric sclerae ENMT external ear and nose normal, oropharynx normal Respiratory normal respiratory effort, lungs clear to auscultation Cardiovascular RRR, no murmur, no edema Gastrointestinal (Abdomen) normal bowel sounds, soft, nontender, no hepatosplenomegaly Musculoskeletal no cyanosis or clubbing, extremities motor strength 5/5 Neurologic PERRL, EOMI, accommodation nl, no face palsy, no dysarthria Psychiatric A+Ox3, euthymic affect Discharge Data Allergies Allergy/AdvReac Type Severity Reaction Status Date / Time No Known Allergies Allergy Unverified 11/12/23 06:10 Consultations 11/12/23 06:09 ED Decision to Admit Stat 11/12/23 08:47 Consult Cardiology Routine Procedures Performed Operation Date: 11/12/23 11:00 Actual Procedures p Cineradiography w/Routine Exam - Reddy Liu MD s Cath, Left with Cors and Vent - Reddy Liu MD Ordered Studies 11/12/23 05:58 CT angio chest PE protocol Stat 11/12/23 14:16 CL Cath Imgs for PACS use only Routine Hospital Course (1) Elevated troponin: 28-year-old male with no significant past medical history comes in because of chest pain and shortness of breath.Patient states since last 1 week he has some congestion and last Wednesday had bodyaches and fever but that got resolved. He is trying to cough but did not not getting any phlegm out. Around 3:30 AM on day of presentation, he woke up with shortness of breath and chest pain 2-3/10 in severity and he has anxiety and states he worked it up and felt numbness in the left arm and decided to come to the ER. His drive to the ER is about 45 minutes. About [place] to the ER his chest pain got resolved. Left arm numbness resolved. In the ER after steroids and nebs treatments shortness of breath resolved. Chest pain and shortness of breath Elevated troponin Chest pain resolved before coming to the ER Shortness of breath improved with neb treatment and steroid Having ongoing illness for past few days with congestion and episode of fever EKG no acute findings Troponin came back as 2346 UTox negative Resp PCR negative CXR and CTA chest negative Trop was significantly elevated at 2346. No ischemic changes on EKG TTE normal Card cath on 11/12/23 did not show any CAD Reports only mild cough and congestion today Counseled regarding alcohol cessation. Drinks about 6 beer per day Cardiology recommend discharge on metoprolol [id number] BID for at least 30days They will arrange outpatient follow up and Cardiac MRI outpatient Mother stated she will call [facility] on Mon to establish new PCP and patient's former PCP has retired Total Time Total Time Spent Total Time Spent (In Minutes): 35 Total Time Includes: Examination of the Patient, Discharge Planning and Medication Reconciliation Discharge Plan Discharge Items Patient Disposition: Home - Self-Care Reason For Visit: SOB/CHEST, ELEVATED TROPONIN Discharge Diagnosis: Chest pain Elevated troponin Condition on Discharge: Good Activity: As commented below Activity Comment: No strenous activity Non-emergency contact: Primary Care Provider Call non-emergency contact if: you have any medication questions Follow-up/Referrals: PCP,NO [Primary Care Provider] - Diet: Regular Addtl Attending Provider Instructions: Mr Rawls You came to the hospital for chest pain. You were extensively evaluated and had cardiac catheterization which did not show any blockage/coronary artery disease. You likely had acute viral myocarditis. Cardiology will arrange Cardiac MRI and follow up. Please continue metoprolol for atleast 30 days until follow up with Cardiology Please ensure you set up with a Family Doctor as we discussed. Please quit alcohol use as we discussed It was a pleasure taking care of you. Pending Studies at Discharge: No Stand-Alone Forms: My [facility] [employer], Smoking Cessation Medications and DC Order Prescriptions: New metoprolol tartrate 25 mg Tablet 12.5 mg PO BID 30 Days Qty: 30 0RF loratadine 10 mg tablet 10 mg PO DAILY Qty: 7 0RF Discharge Orders: Discharge Order (Routine); Ordered 11/13/23 Ordered By: Indira Ku Admission Data Admit Date/Time: 11/12/23 06:52 Attending Provider: Indira Ku I. Admit Provider: Oscar Morales Primary Care Provider: PCP,NO Other Providers: Oscar Morales; Reddy Liu Other Interventions: Discharge Summary Assessment (RN) Last Done: 11/13/23 13:30
[2023-11-13] MEDS ORDERED: METOPROLOL TARTRATE 25 MG TAB PO SCH (21:00)
[2023-11-14] MEDS ORDERED: GABAPENTIN 600 MG TAB PO SCH (08:00)
[2023-11-15] MEDS ORDERED: GABAPENTIN 600 MG TAB PO SCH (20:00)
== END 2023-11-13 14:29 | disposition home or self-care (01) | DRG 287 ==
LOC: ED 04:51 → EDINP 06:52 → INTOOBSV 06:52 → EDINP 08:46 → 4W 15:15